=== PATIENT | male | born 1950 | race Caucasian/White ===

== ENCOUNTER 2016-07-28 23:17 | Observation (INO) | payer MEDICARE ==
[~2016-07-28] VITALS: Ht 185.4 cm; Wt 93.0 kg
[2016-07-29 01:57] LABS: HEMOGLOBIN 16.4 gm/dl (14.0-17.5); RED BLOOD COUNT 5.45 M/UL (4.20-5.50); WHITE BLOOD COUNT 7.4 K/UL (4.5-11.0)
[2016-07-29 02:31] LABS: BUN/CREATININE RATIO 16 (0-10)
[2016-07-29] MEDS ORDERED: IBUPROFEN600 MG PO (11:53)
[2016-07-29] MEDS ORDERED: ALPRAZOLAM0.5 MG PO (11:54)
[2016-07-29] MEDS ORDERED: MESTINON60 MG PO (11:54)
[2016-07-29] MEDS ORDERED: ASPIR 8181 MG PO (19:48)
[2016-07-29] MEDS ORDERED: LIPITOR TAB 2020 MG PO (19:49)
[2016-07-29] MEDS ORDERED: METOPROLOL SUCC25 MG PO (19:50)
[2016-07-29] MEDS ORDERED: IMDUR ER TAB 3030 MG PO (19:51)
== END 2016-07-29 20:16 | disposition home or self-care (01) ==
LOC: ER1 23:17 → MED SURG 4 07-29 03:59 → ZEROF 07-29 03:59 → MED SURG 4 07-29 11:18
PROVIDERS: Physician Assistant; ADMIT Internal Medicine
DX: I20.0 Unstable angina (principal); I10 Essential (primary) hypertension; E78.5 Hyperlipidemia, unspecified; G70.00 Myasthenia gravis without (acute) exacerbation; M19.90 Unspecified osteoarthritis, unspecified site; H91.92 Unspecified hearing loss, left ear; Z88.1 Allergy status to other antibiotic agents; Z79.82 Long term (current) use of aspirin; Z79.899 Other long term (current) drug therapy; Z82.49 Family history of ischemic heart disease and other diseases of the circulatory system; Z88.8 Allergy status to other drugs, medicaments and biological substances
CPT/HCPCS: ECHO; 36415; 71010; 71020; 78452; 80053; 80061; 82550; 82553; 83735; 83874; 83880; 84439; 84443; 84484; 85025; 93005; 93017; 93306; 96372; 99285; A9502; G0378; J1650; J2785